=== PATIENT | male | born 1975 | race Caucasian/White ===

== ENCOUNTER → 2022-07-09 15:04 | Outpatient (BNVA) | payer OTHER, SELFPAY | PROVIDERS: PCP Physical Medicine & Rehabilitation; Visit Provider Internal Medicine | DX: M53.3 Sacrococcygeal disorders, not elsewhere classified (principal) | CPT/HCPCS: 99202 ==

== ENCOUNTER 2022-12-26 13:24 | Day surgery (SDC) | payer OTHER, SELFPAY ==
--- NOTE | ~2022-12-26 | FL_ITS ---
EXAMINATION: XA FL IN OR WITH IMAGES CLINICAL INFORMATION: SI joint induration. COMPARISON: None available. TECHNIQUE: Fluoroscopy Supervised By: Dr. Alfonzo Ruiz. Fluoroscopy Time: 0.5 minutes. Cumulative Dose: 9.30 mGy DAP: 1.09 Gycm2 Images: 6. FINDINGS: 6 digital images obtained revealed with 3 needles positioned posterior to right lateral sacrum for pain medications. The SI joint is unremarkable. FL/FL guidance in OR IMPRESSION: Fluoroscopy guidance was provided to referring physician for pain medication.
[2022-12-26 13:43] VITALS: BP 180/99; PULSE 89; RESP 18; TEMP 36.3; O2SAT 96; BMI 28.7
--- NOTE | 2022-12-26 16:29 | P.BOP_ITS ---
Brief Operative Note Date of Service: 12/26/22 Pre-op diagnosis: Chronic sacroiliac joint dysfunction, sacroiliac joint pain Post-op diagnosis: same Procedure: Cooled radiofrequency ablation, Right L5 dorsal ramus and lateral branches of the S1, S2, S3 posterior primary rami nerves - fluoroscopic guided Implants: None Surgeon: Alfonzo Ruiz MD Anesthesia: local Was an Transportation Planning Engineer used for this Procedure?: No Estimated blood loss (mL): 2 Pathology: none sent Condition: stable Disposition: same day
--- NOTE | 2022-12-26 16:29 | MHC.SHP ---
Pre-Procedural Eval Section A Date of Service: 12/26/22 The patient is an INPATIENT: No Changes since office visit: Yes Patient answered all questions The History & Physical has been completed within 30 days and I have reviewed it.: No Section B Chief Complaint: Sacrococcygeal disorders, not elsewhere classified Relevant Family History (Specify if Yes): No Relevant Social History: None Present Medications: see Short Stay Collaborative assessment Medical History: No relevant PMH History of Previous Operations: No relevant previous surgery Allergies: Allergies Allergy/AdvReac Type Severity Reaction Status Date / Time No Known Allergies Allergy Verified 07/09/22 15:11 [No Known Allergies*] Review of Systems Sugical H&P ROS: Negative: Constitution, Cardiovascular and Respiratory Exam Surgical H&P Exam: Normal: HEENT, Normal: Heart and Normal: Lungs Plan Diagnosis/Plan: Unchanged I have reviewed the history and physical and performed a pertinent physical examination on my patient. No changes have occurred unless specified. Time Spent With Patient Time: Total time managing care of this patient today ____ minutes.
--- NOTE | 2022-12-26 16:29 | W.PM.OPN ---
Operative Note Operative Note Date of Service: 12/26/22 Narrative: Cooled radiofrequency ablation, Right L5 dorsal ramus and lateral branches of the S1, S2, S3 posterior primary rami nerves - fluoroscopic guided After obtaining written consent, pre-procedure blood pressure and heart rate were stable and recorded in the nursing record. The patient was placed prone on the fluoroscopy table. The area overlying the peripheral nerves was widely prepped with chloraprep, allowed to dry and sterilely draped. Using fluoroscopy, the appropriate landmarks were identified. The skin overlying the target was anesthetized with 0.5% lidocaine. 18 gauge 50mm radiofrequency needles were advanced under fluoroscopic guidance to the sacral ala (L5 medial branch) and around the lateral margins of the S1, S2 & S3 foramina (sacral lateral branches). Verification was done using lateral and AP views. Aspiration was negative for heme. Impedences were verified under 600 ohms. Motor testing (2 Hz) confirmed needle placement at each site within the appropriate voltage thresholds. Each site was injected with 0.5-1 ml 2% preservative-free lidocaine. Radiofrequency lesioning was performed for 165 seconds at 80 deg Celcius tissue temperature. Each site was then injected with 1 ml 0.5% preservative-free ropivacaine. The needles were removed, skin cleansed and a sterile bandage was applied. The patient tolerated the procedure well and no complications were encountered. No immediate evidence of skin damage was seen. Following the procedure the patient's vital signs were stable. The patient was discharged home in good condition with post-procedural instructions. Time Out: Immediately prior to the procedure, the following was verbally confirmed that there is a signed consent form and that the correct patient, planned procedure, site and side are consistent with documentation and that necessary equipment and/or blood products are available prior to the start of the case. Complications: none EBL: <5 cc
[2022-12-26 16:32] VITALS: BP 140/95; PULSE 76; RESP 20; TEMP 36.8; O2SAT 95
--- NOTE | 2022-12-26 16:51 | PC.NURSE ---
VOIDED PRIOR TO DISCHARGE AMBULATORY NO UNSTEADINESS OR DIZZINESS
== END 2022-12-26 16:52 | disposition home or self-care (01) ==
PROVIDERS: PCP Family Medicine; Visit Provider Internal Medicine
PROC: (CPT 64635; principal; 2022-12-26 14:40)
DX: M53.3 Sacrococcygeal disorders, not elsewhere classified (principal); M54.50 Low back pain, unspecified; Z79.899 Other long term (current) drug therapy; Z79.891 Long term (current) use of opiate analgesic
CPT/HCPCS: 64625

== ENCOUNTER → 2023-01-28 10:17 | Outpatient (BNVA) | payer OTHER, SELFPAY | PROVIDERS: PCP Family Medicine; Visit Provider Internal Medicine ==

== ENCOUNTER 2023-04-16 10:00 | Outpatient (RCR) | payer OTHER, SELFPAY ==
--- NOTE | 2023-03-14 11:42 | MHC.PT.EP ---
[facility] [place] [facility] [place] Office [place] Office [address] Eugene Pruitt [address] [phone] F: [phone] F: [phone] F: [phone] F: [phone] Physical Therapy Plan of Care Date of Evaluation: Date of Surgery: 12/26/22 Diagnosis: SACROILIAC JOINT PAIN, LBP-> 12/26/22 S/P Cooled radiofrequency ablation, Right L5 dorsal ramus and lateral branches of the S1, S2, S3 posterior primary rami nerves - Assessment: 47 YO MALE W H/O LUMBOSACRAL INJURY IN 08/2010 AND RESULTANT LBP/ SI Jt DYSFUNCTION- HE WAS RECENTLY TREATED BY [facility] AND ON 12/26/22 HE UNDERWENT A Cooled radiofrequency ablation, Right L5 dorsal ramus and lateral branches of the S1, S2, S3 posterior primary rami nerves. THE Pt NOTES HE HAS A REDUCTION IN SXS POST ABLATION. 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 OBJECTIVELY: DECR POSTURE AWARENESS, (+) LUMBOPELVIC ASYMM W RESULTANT SOFT TISSUE IRRIT AND TENSION, STRENGTH DEFICITS IN LUMBOPELVIC/ PROX LEs, DECR FLEXIB IN Lt > Rt HIP, AND PAIN IN HARSH HIPS/ SI JtS. FUNCTIONALLY, THE Pt IS GUARDED AND LIMITED W WALKING DURATION/ DISTANCE, DECR MECHANICS W FUNCT SQUAT, LIMITED CARRYING, SITTING-> PAIN W ADLs BUT VARIES IN INTENSITY. HE WOULD BENEFIT FROM PT TO ADDRESS THE ABOVE, ESPEC IMPROVING LUMBOPELVIC STRENGTH/ STABILITY/ SYMMETRY EASE SOFT TISSUE IRRIT AND IMPROVE HIS FUNCTIONAL MOBILITY TOLERANCE. Frequency and Duration: The patient will be seen 2 x WK x 6 WKS Short Term Goals: *Pt INDEP W SELF-CORRECT POSTURE AND DEMON IMPROVED, MORE EFFICIENT BODY MECH/ SQUAT W SIMUL ADLs *DECR LS PAIN TO 2-3/10 W REG ADLs/ WORK *IMPROVE HARSH HIP FLEXIBILITY * INTIATE HEP-> ADDRESS LUMBOPELVIC ASYMMETRY Social Worker Psychiatric Goals: *Pt WILL IMPROVE LUMBOPELVIC/ LEs STRENGTH TO AT LEAST 5-/5 *Pt RESUME REG ADLs AND FITNESS ROUTINE EVIDENT W IMPROVED OSWESTRY SCORE (AT EVAL ) *Pt INDEP W PROGR HEP AND SELF-SX MGMT TECHN Treatment Plan: Modalities to reduce pain, spasms and effusion. Manual therapy to restore motion and function. Therapeutic exercise to improve strength and flexibility. Neuromuscular re-education for posture and balance. Therapeutic activities to return to functional activities of daily living. Electronically signed by: CATY PRATT,PT Please sign and return to therapist. Thank you for your referral.
== END 2023-06-18 12:03 | disposition home or self-care (01) ==
LOC: HO.PT 10:00
PROVIDERS: PCP Family Medicine; Visit Provider Internal Medicine
DX: M53.3 Sacrococcygeal disorders, not elsewhere classified (principal); M54.50 Low back pain, unspecified
CPT/HCPCS: 97110; 97140; 97162

== ENCOUNTER 2023-12-19 06:20 | Outpatient (REF) | payer OTHER, SELFPAY | END 2023-12-19 06:21 | disposition home or self-care (01) | LOC: CF 06:20 | PROVIDERS: Visit Provider Internal Medicine | DX: Z13.89 Encounter for screening for other disorder (principal) ==

== ENCOUNTER 2024-01-02 06:18 | Outpatient (REF) | payer OTHER, SELFPAY ==
--- NOTE | ~2024-01-02 | FL_ITS ---
EXAMINATION: XR FLUOROSCOPY WITH IMAGES CLINICAL INFORMATION: Sacrococcygeal disorder. COMPARISON: None available. TECHNIQUE: Fluoroscopy Supervised By: Dr. Ruiz. Fluoroscopy Time: 0.3 min. Cumulative Dose: 4.16 mGy. DAP: 0.0396 mGym2. Images: 7. FINDINGS: Intraoperative fluoroscopy and spot films were performed during a procedure in the OR. Three needles/probes are seen overlying the right hemisacrum. Please correlate with Dr. Ruiz' report for complete details. FL/FL guidance in treatment room IMPRESSION: Intraoperative fluoroscopy and spot films were obtained. Please see Dr. Ruiz' report for complete details.
== END 2024-01-02 06:19 | disposition home or self-care (01) ==
LOC: CF 06:18
PROVIDERS: Visit Provider Internal Medicine
DX: M53.3 Sacrococcygeal disorders, not elsewhere classified (principal)
CPT/HCPCS: 64625

== ENCOUNTER 2024-01-02 13:07 | Outpatient (AMB) | payer OTHER, SELFPAY ==
--- NOTE | 2024-01-02 13:13 | MHC.OFFVIS ---
Vital Signs 01/02/24 15:17 Height 5 ft 10 in Weight 195 lb BMI 28.0 BP 132/82 Blood Pressure Location Lt brachial Position Sitting Respiration 18 Pulse 109 H Pulse Source Pulse Oximeter Pulse Oximetry (%) 98 Oxygen Delivery Method Room Air Comment Pre-Op Intake Visit Reasons: Right SIJ RFA Allergies No Known Allergies [No Known Allergies*] Allergy (Verified 01/28/23 10:33) HPI HPI Right SIJ RFA: Details: Patient presents for scheduled procedure. Denies any recent cough, cold, infection, fever or other significant changes in medical history since last office visit. PFSH Medical History (Updated 02/12/23 @ 09:02 by Alfonzo Ruiz MD) Hx of primary hypertension History of depression Surgical History (Updated 12/26/22 @ 13:40 by Gail Reid RN) No pertinent past surgical history Physical Exam Vital Signs: Last Vital Signs Pulse 109 H 01/02/24 15:17 Resp 18 01/02/24 15:17 BP 132/82 01/02/24 15:17 Pulse Ox 98 01/02/24 15:17 Oxygen Delivery Method Room Air 01/02/24 15:17 BMI result Body Mass Index 28.0 Office Procedures Details: Cooled radiofrequency ablation, right L5 dorsal ramus and lateral branches of the S1, S2, S3 posterior primary rami nerves - fluoroscopic guided After obtaining written consent, pre-procedure blood pressure and heart rate were stable and recorded in the nursing record. The patient was placed prone on the fluoroscopy table. The area overlying the peripheral nerves was widely prepped with chloraprep, allowed to dry and sterilely draped. Using fluoroscopy, the appropriate landmarks were identified. The skin overlying the target was anesthetized with 0.5% lidocaine. 18 gauge 50mm radiofrequency needles were advanced under fluoroscopic guidance to the sacral ala (L5 medial branch) and around the lateral margins of the S1, S2 & S3 foramina (sacral lateral branches). Verification was done using lateral and AP views. Aspiration was negative for heme. Impedences were verified under 600 ohms. Sensory testing (50 Hz) and then motor testing (2 Hz) confirmed needle placement at each site within the appropriate voltage thresholds. Each site was injected with 0.5-1 ml 2% preservative-free lidocaine. Radiofrequency lesioning was performed for 165 seconds at 80 deg Celcius tissue temperature. The needles were removed, skin cleansed and a sterile bandage was applied. The patient tolerated the procedure well and no complications were encountered.. Following the procedure the patient's vital signs were stable. The patient was discharged home in good condition with post-procedural instructions. Time Out: Immediately prior to the procedure, the following was verbally confirmed that there is a signed consent form and that the correct patient, planned procedure, site and side are consistent with documentation and that necessary equipment and/or blood products are available prior to the start of the case. Complications: none EBL: <5 cc Additional procedure code (CPT) needed Assessment & Plan Assessment & Plan (1) Sacroiliac joint pain: Code(s): M53.3 - Sacrococcygeal disorders, not elsewhere classified Category: Medical Plan Patient is status post right sacroiliac joint innervation radiofrequency ablation. Patient tolerated procedure well and was discharged home in stable condition with discharge instructions. All questions were answered. We will follow-up via telephone or in clinic to assess response to therapy. A follow-up appointment was made during today's visit. Orders: Orders FL guidance in treatment room 12/19/23 M53.3 - Sacrococcygeal disorders, not elsewhere classified FL guidance in treatment room Today M53.3 - Sacrococcygeal disorders, not elsewhere classified Coding Level of Care Code Procedure Only Diagnoses Sacroiliac joint pain M53.3
[2024-01-02 15:17] VITALS: BP 132/82; PULSE 109; RESP 18; O2SAT 98; BMI 28.0
== END 2024-01-02 15:11 | disposition home or self-care (01) ==
LOC: HO.PMCPRC 13:07
PROVIDERS: PCP Family Medicine; Visit Provider Internal Medicine
DX: M53.3 Sacrococcygeal disorders, not elsewhere classified (principal)
CPT/HCPCS: 64625